=== PATIENT | male | born 1990 | race American Indian/Alaskan Native ===

== ENCOUNTER 2020-07-31 12:00 | Emergency (ER) | payer OTHER ==
[2020-07-31] MEDS ORDERED: ACETAMINOPHEN 325 MG TAB PO ONE (13:17)
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
[2020-07-31 15:21] VITALS: BP 125/77
== END 2020-07-31 15:23 | disposition home or self-care (01) ==
LOC: ED 12:00
DX: R07.89 Other chest pain (principal); R51 Headache; Z79.899 Other long term (current) drug therapy; V49.49XA Driver injured in collision with other motor vehicles in traffic accident, initial encounter; W22.10XA Striking against or struck by unspecified automobile airbag, initial encounter; Y93.89 Activity, other specified; Y92.410 Unspecified street and highway as the place of occurrence of the external cause; Y99.8 Other external cause status
CPT/HCPCS: 71046